=== PATIENT | female | born 1980 ===

== ENCOUNTER 2017-01-05 06:32 | Day surgery (SDC) | payer BC, OTHER ==
[2017-01-05 06:47] VITALS: BMI 28.9
[2017-01-05] MEDS ORDERED: Midazolam 2 MG/2 ML VIAL ONE (07:12)
[2017-01-05] MEDS ORDERED: ePHEDrine 50 mg/ml Inj ONE (07:12)
[2017-01-05] MEDS ORDERED: Propofol 10 mg/ml Inj (20 ML) ONE (07:12)
[2017-01-05] MEDS ORDERED: Lidocaine 4% (Laryng-O-Jet) Kit MM ONE (07:13)
[2017-01-05] MEDS ORDERED: Succinylcholine 200 mg/10 ml Inj IV ONE (07:13)
[2017-01-05 07:56] LABS: HEMATOCRIT 39.2 % (34.0-47.0); MEAN CELL VOLUME 83.3 fl (81.0-99.0); MEAN CORPUSCULAR HEMOGLOBIN 26.9 pg (27.0-31.0); MEAN CORPUSCULAR HGB CONC 32.3 g/dL (33.0-37.0); RED CELL DISTRIBUTION WIDTH 14.4 % (11.5-14.5); WHITE BLOOD COUNT 16.2 K/uL (4.8-10.8)
[2017-01-05] MEDS ORDERED: Lactated Ringer's 1,000 ML IV ONE (08:30)
[2017-01-05] MEDS ORDERED: Dexamethasone 4 mg/1 ml ONE (08:53)
[2017-01-05] MEDS ORDERED: HYDROmorphone 0.5 mg/0.5 ml ISec IVP PRN (09:03)
[2017-01-05] MEDS ORDERED: Lactated Ringer's 1,000 ML IV SCH (09:15)
[2017-01-05 09:27] VITALS: RESP 18
[2017-01-05 13:00] VITALS: BP 135/87; PULSE 102; TEMP 98; O2SAT 97
--- NOTE | 2017-01-10 08:15 | OP ---
PROCEDURE DATE: 01/05/2017 SURGEON: Edward Pulliam M.D. PREOPERATIVE DIAGNOSIS: Abnormal bleeding, pelvic pain, rule out endometritis, adenomyosis. POSTOPERATIVE DIAGNOSES: No evidence of endometritis or adenomyosis. PROCEDURE PERFORMED: Diagnostic hysteroscopy, D and C and endometrial culture. ESTIMATED BLOOD LOSS: Minimal. COMPLICATIONS: None. DESCRIPTION OF PROCEDURE: After adequate anesthesia was obtained, the patient was placed in the dors al lithotomy position. She was prepped and draped, the surgeon gowned and gloved. The bladder was e mptied with a red rubber catheter and at this point, a speculum was placed in the vagina. The anteri or lip of the cervix was grasped and the diagnostic hysteroscope was inserted in the uterine cavity. The scope entered very easily with minimal dilatation. The cavity appeared to be slightly reduced in size secondary to the patient's prior surgery. There was no evidence of endometritis. On the left cornual area, there appeared to be some areas that may have been suggestive of adenomyosis, but certa inly no endometritis or retained product of conceptions were seen. Prior to doing the hysteroscopy, 2 cultures were taken under sterile conditions of the intracavitary area. Endometrial sampling was pe rformed with gentle curetting. At this point, the instruments were removed. The cervix appeared to be hemostatic. The patient was woken up and taken to recovery room in excellent condition. Edward Pulliam MD cc: [id number] TT: 01/10/2017 08:14:14 tn
== END 2017-01-05 13:05 | disposition home or self-care (01) ==
LOC: H.OPSURG 06:32
PROVIDERS: ATTEND Obstetrics & Gynecology Reproductive Endocrinology
DX: N93.9 Abnormal uterine and vaginal bleeding, unspecified (principal)
CPT/HCPCS: 36415; 58558; 85027; 86850; 86900; 87070; 88305; J0330; J0690; J1100; J2001; J2250; J2405; J2704; J3010; J7030; J7120